=== PATIENT | female | born 1965 | race American Indian/Alaskan Native ===

== ENCOUNTER 2018-05-15 11:52 | Day surgery (SDC) | payer BC, OTHER ==
[2018-05-15] MEDS ORDERED: NACL 0.9% 1000 ML 1,000 ML ONE (15:01)
--- NOTE | 2018-05-15 15:27 | Anesthesia Day of Surgery ---
Anesthesia Day of Surgery - Day of Surgery Patient Examined: Yes Patient H&P Reviewed: Yes Patient is NPO: Yes
--- NOTE | 2018-05-15 15:27 | Anesthesia Consultation ---
Anesthesia Consult and Med Hx Date of service: 05/15/18 - Airway Anesthetic Teeth Evaluation: Good ROM Head & Neck: Adequate Mental/Hyoid Distance: Adequate Mallampati Class: Class II Intubation Access Assessment: Probably Good - Pulmonary Exam CTA: Yes - Cardiac Exam Cardiac Exam: RRR - Pre-Operative Health Status ASA Pre-Surgery Classification: ASA2 - Pulmonary Hx Smoking: No Hx Asthma: Yes - Cardiovascular System Hx Hypertension: Yes
[2018-05-15] MEDS ORDERED: DIPRIVAN 10 MG/ML IV ONE ×2 (15:28)
--- NOTE | 2018-05-15 15:54 | Discharge Summary ---
Short Stay Discharge Plan Activity: advance as tolerated Weight Bearing Status: Weight Bear as Tolerated Diet: regular Follow up with: SUSAN WARREN MD [Primary Care Provider] - 7 Days
--- NOTE | 2018-05-15 15:54 | Operative Report ---
Operative Report Operative Report: Date of procedure: 05/15/2018 Procedure: Colonoscopy and multiple biopsies. Attending physician: Lv De La Rosa MD Application Defense Manager: Lv De La Rosa MD Indication: Patient is a 53-year-old female who presents for screening colonoscopy. A colonoscopy serves to evaluate patient for colorectal cancer screening. Consent: Informed consent was obtained after advising the patient and family regarding nature of this procedure, its indications, potential benefits as well as possible complications including but not limited to bleeding perforation and adverse reaction to medication, infection as well as other cardiopulmonary complications. An informed written and verbal consent was then obtained after due opportunity was provided for questions and answers. Monitoring: Patient was monitored continuously with pulse oximetry and electrocardiographic recordings as well as blood pressure recordings. Vital signs remained stable throughout this procedure with no untoward events. Preoperative assessment: Patient was assessed immediately prior to this procedure for capacity to tolerate monitored anesthesia care and moderate sedation as well as general anesthesia. Patient's ASA classification is 2, Mallampati class is 2, Hyomental distance is 3. Instrument: Kloudcoinon video colonoscope Medications: Propofol given intravenously in divided doses. For details please refer to anesthesia records. Description of procedure: Patient was placed in the left lateral decubitus position after achieving sedation, a digital rectal examination was performed following which the colonoscope was introduced into the anal verge and advanced to the cecum which was identified by the cecal valve, the appendiceal orifice, as well as by the cecal strap and direct transillumination. The colonoscope was subsequently withdrawn with careful inspection of all mucosal surfaces. Patient tolerated this procedure well and was subsequently taken to the recovery room. The following findings were noted. Findings: Patient had few scattered diverticula involving the sigmoid and descending colon. There was diffuse colonic involvement with melanosis coli moderate severity. She will obtained from the sigmoid colon for histologic confirmation. On the retroflex view at the anal verge, patient had Grade II internal hemorrhoids. Impression: Mild diverticulosis. Melanosis coli. Internal hemorrhoids. Plan: Follow pathology report. High-fiber diet. Repeat colonoscopy in 10 years.
[2018-05-15] MEDS ORDERED: WATER FOR IRRIG STERILE IR ONE (15:56)
[2018-05-15 18:12] VITALS: BP 152/92
== END 2018-05-15 11:53 | disposition home or self-care (01) ==
LOC: GIO 11:52
PROVIDERS: ATTEND Internal Medicine Gastroenterology
DX: Z12.11 Encounter for screening for malignant neoplasm of colon (principal); K63.89 Other specified diseases of intestine; K57.30 Diverticulosis of large intestine without perforation or abscess without bleeding; K64.1 Second degree hemorrhoids; J45.909 Unspecified asthma, uncomplicated; I10 Essential (primary) hypertension; M06.9 Rheumatoid arthritis, unspecified; Z79.899 Other long term (current) drug therapy
CPT/HCPCS: 45380; 88305; J2704; J7030